=== PATIENT | male | born 1960 | race Caucasian/White ===

== ENCOUNTER 2016-10-29 08:21 | Day surgery (SDC) | payer SELFPAY ==
[2016-10-29] MEDS ORDERED: Lactated Ringer's 500 ML IV ONE (09:11)
[2016-10-29] MEDS ORDERED: Propofol 10 mg/ml Inj (20 ML) ONE (10:56)
[2016-10-29 11:28] VITALS: O2SAT 97
[2016-10-29 11:51] VITALS: BP 100/72; PULSE 83; RESP 17; TEMP 97
== END 2016-10-29 12:21 | disposition home or self-care (01) ==
LOC: H.ENDO 08:21
PROVIDERS: ATTEND Internal Medicine Gastroenterology
DX: Z12.11 Encounter for screening for malignant neoplasm of colon (principal); I10 Essential (primary) hypertension; K64.8 Other hemorrhoids
CPT/HCPCS: 45378; 88305; J2001; J2704; J7120